=== PATIENT | female | born 1975 | race African-American/Black ===

== ENCOUNTER 2024-09-08 09:21 | Outpatient (REF) | payer OTHER, SELFPAY ==
--- NOTE | 2024-09-08 | EMG_ITS ---
Impression: Normal motor and sensory nerve conduction velocities in the lower extremities except for absent medial and lateral plantar responses bilaterally. Normal EMG of the right L2-S1 innervated muscles. Please see detail neurophysiological report. MTDD
--- OUTSIDE RECORDS SUMMARY | 2024-09-08 09:52 | XMS_ITS | Encounter Summary ---
Author Organization [facility] [place] [address] Care Team Providers Care Water Leak Repairer Name Role Phone Neto Boo MD Primary Care Provider [phone] Encounter Details Date Type Department Care Team ([facility] st Contact Info) Description 08/13/2024 Lab Requisition [facility] - Main Lab 299 [facility] [employer] [place] [phone] Mary Dangelo MD 299 [facility] [address] [place] [address] Acute vaginitis Social History Tobacco Use Types Packs/Day Years Used Date Smoking Tobacco: Never Smokeless Tobacco: Never Alcohol Use Standard Drinks/Week Comments No 0 (1 standard drink = 0.6 oz pur e alcohol) Housing Instability Answer Date Recorde d Are you worried that in the next 2 months you may not have stable housing? No 07/29/2024 Food Access & Nutrition Answer Date Rec orded Do you have access to a vari ety of food including fruits and vegetables? Yes 07/29/2024 Access to Healthcare Answer Date Record ed Within the last 3 months, mi anne many times did you visit the emergency department for your medical care? 0 07/29/2024 Health Literacy Answer Date Recorded How often do you need to hav e someone help you when you read instructions, pamphlets, or other written material from your doctor or pharmacy? Rarely 07/29/2024 Caregiver: How often do you need to have someone help you when you read instructions, pamphlets, or other written material from your doctor or pharmacy? Not on file 07/29/2024 Transportation Answer Date Recorded Has the lack of transportati on kept you from meetings, work, or from getting things needed for daily living? No Has the lack of transportati on kept you from medical appointments or from getting medications? No 07/29/2024 Social Isolation Answer Date Recorded How often do you feel lonely or isolated from those around you? Sometimes 07/29/2024 Food Risk Answer Date Recorded Within the past 12 months we worried whether our food would run out before we got money to buy more. Never true 07/29/2024 Within the past 12 months th e food we bought just didn't last and we didn't have money to get more. Never true 07/29/2024 Dependent Care Answer Date Recorded Do you need help finding or paying for care for your loved ones. For example, childcare attendant or elderly care for an older adult? No 07/29/2024 Education Answer Date Recorded Do you think completing more education or training, like finishing a GED, going to college, or learning a trade, would be helpful for you? N/A 07/29/2024 Employment and Income Answer Date Recor ded During the last four weeks, have you been actively looking for work? No 07/29/2024 Living Situation Answer Date Recorded What is your living situation? 0 07/29/2024 Comments No Sex and Gender Information Value Date Recorded Sex Assigned at Female 12/25/2023 9:20 AM EDT Legal Sex Female 8:49 PM EST Gender Identity Female 12/25/2023 9:20 AM EDT Sexual Orientation Not on file documented as of this encounter Plan of Treatment Upcoming Encounters Date Type Department Care Team (Late st Contact Info) Description 09/25/2024 9:30 AM EDT Consult Orthopedic Surgery - [place] 160 175 [facility] [address] [place] [phone] Robyn Muse MD 175 [facility] 160 [place] [address] 07/29/2025 8:30 AM EDT Office Visit Internal Medicine [facility] [address] [phone] Eamon Conner NP [address] [address] documented as of this encounter Procedures Procedure Name Priority Date/Time Associated Diagnosis Comments VAGINITIS PATHOGENS BY PCR Routine 08/13/2024 12:00 AM EDT Acute vaginitis documented in this encounter Results * (ABNORMAL) Vaginitis pathogens molecular study (08/13/2024 12:00 AM EDT) Trichomonas vaginalis Negative Negative 08/14/2024 1:36 PM EDT [facility] Gardnerella vaginalis Positive(A) Negative 08/14/2024 1:36 PM EDT [facility] Gabriela Species Positive(A) Negative 08/15/19 1:36 PM EDT [facility] Swab Vaginal structure / Unknown 08/13/2024 08/13/2024 6:47 PM EDT us Mary Dangelo MD LAB MICROBIOLOGY - GENER AL ORDERABLES Final Result [facility] [address] [place] [address], documented in this encounter Visit Diagnoses Diagnosis Acute vaginitis Unspecified vaginitis and vulvovaginitis documented in this encounter Additional Health Concerns Assessment Noted Time PHQ-9 Depression Total Score: 9 07/30/19 9:17 AM EDT documented as of this encounter Care Teams Water Leak Repairer Relationship Specialty Start Date End Date Neto Boo MD [address] [id number] PCP - General Internal Medicine 07/29/24 documented as of this encounter
--- OUTSIDE RECORDS SUMMARY | 2024-09-08 09:52 | XMS_ITS | Clinical Summary ---
Author Organization [facility] Address [address] [place] [address] Care Team Providers Care Medical Data Analyst Name Role Phone Radha Jimenez DMD Primary Care Provider [phone] Source Comments PLEASE NOTE, if this patient is a minor, it may be UNLAWFUL to discuss sensitive information that is contained in these records (such as FAMILY PLANNING, MENTAL HEALTH or SUBSTANCE ABUSE) with the minor patient's parent or other person without the patient's specific authorization.[facility] Social History Tobacco Use Types Packs/Day Years Used Date Smoking Tobacco: Never Assessed Social Connections Answer Date Recorded Social Connections and Isolation 0 02/03/2020 Financial Resource Strain Answer Date R ecorded Financial Resource Strain 0 2019 Stress Answer Date Recorded Stress 0 02/03/2020 Physical Activity Answer Date Recorded Physical Activity 0 02/03/2020 Food Insecurity Answer Date Recorded Food 0 02/03/2020 Transportation Needs Answer Date Record ed Transportation 0 02/03/2020 Housing Stability Answer Date Recorded Housing 0 02/03/2020 Safety and Environment Answer Date Preston rded Safety 0 02/03/2020 Utilities Answer Date Recorded Utilities 0 02/03/2020 Employment Answer Date Recorded Employment 0 02/03/2020 Comments Unknown Sex and Gender Information Value Date Recorded Sex Assigned at Not on file Legal Sex Female 11:44 AM PST Gender Identity Not on file Sexual Orientation Not on file Plan of Treatment Not on file Insurance [place] [facility] ON LICENSE OF [facility] Care Teams Medical Data Analyst Relationship Specialty Start Date End Date Radha Jimenez DMD [address] [place] [id number] PCP - General Dental Awning Erector 10/02/19
== END 2024-09-08 09:22 | disposition home or self-care (01) ==
LOC: HO.NEURO 09:21
PROVIDERS: Visit Provider Psychiatry & Neurology Neurology
DX: R20.0 Anesthesia of skin (principal)
CPT/HCPCS: 95886; 95913

== ENCOUNTER → 2024-09-08 10:30 | Outpatient (BNV) | payer OTHER, SELFPAY | PROVIDERS: Visit Provider Psychiatry & Neurology Neurology | DX: M79.604 Pain in right leg (principal); R20.2 Paresthesia of skin | CPT/HCPCS: 95886; 95913 ==

== ENCOUNTER 2024-09-22 15:09 | Outpatient (AMB) | payer OTHER, SELFPAY ==
--- NOTE | 2024-09-22 15:18 | MHC.OFFVIS ---
Intake Visit Reasons: 6 month f/u Allergies codeine Allergy (Unknown, Verified 09/22/24 15:19) Unknown escitalopram (From Lexapro) Allergy (Unknown, Verified 09/22/24 15:19) Unknown Medication List - Last Reconciled 09/22/24 by Leidy Jaime CNP cholecalciferol (vitamin D3) (Vitamin D3) 50 mcg PO DAILY dextroamphetamine-amphetamine 5 mg 1 tab PO DAILY meclizine 12.5 mg PO BID mirtazapine (Remeron) 15 mg PO BEDTIME oxcarbazepine 300 mg PO QPM sertraline 200 mg PO QAM HPI Comments Details: Vertigo on and off, triggered by stress. Last episode was about 2 weeks ago. She has to lay down and sleep and feels better when she wakes up. Meclizine helps, but makes her tired. Thumping in ears happens when about to have attack. Hearing was about the same. Not taking HCTZ. 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 Gets periodic flareups of vertigo and vomiting. Has to stay out of work for a day or leave work early when it happens. Mild tremors in hands continue, worse with stress. No functional impairment. No difficulty eating, drinking, or swallowing. Occasionally has trouble checking temperature or will need to wait to draw blood at work. Unknown family history as she is adopted. She was working with therapist. passed suddenly from cardiac arrest in 10/2021, had to move, and had COVID in 09/2021. Gets episodes of vertigo and tinnitus, helped by meclizine. She started having episodic spinning vertigo in 2018. If she moves her head during that time, the spinning gets worse. Episodes last about a week the subside. She may have another one a few days later. When she does not have the vertigo, she can put her head in any position without brining it on. In 2019, she also noted swishing noise in both of her ears, which also lasts as long as she has vertigo and then goes away. Not aware of any hearing loss. Sometimes the noise in her ear can wake her up at night. Uses meclizine when needed for vertigo, but makes her drowsy. No significant head trauma. Gets occasional headaches and sinus congestion. [facility] Medical History (Updated 09/22/24 @ 15:22 by Leidy Jaime CNP) Bipolar disorder Meniere disease Review of Systems Const Denies chills, Denies daytime sleepiness, Reports difficulty sleeping, Denies fatigue, Denies fever(s), Denies frequent falls, Reports headache(s), Denies increased appetite, Denies poor appetite, Denies snoring, Denies weakness, Denies weight gain and Denies weight loss Eyes Denies loss of vision ENT Denies vertigo, Reports dizziness, Reports headache(s) and Denies neck pain Card Denies chest pain at rest, Denies chest pain with activity, Denies syncope, Denies leg edema, Denies palpitations, Denies dyspnea and Denies dyspnea on exertion Resp Denies cough, Denies dyspnea, Denies dyspnea on exertion and Denies snoring GI Denies abdominal pain, Denies constipation, Denies heartburn, Denies diarrhea and Denies nausea Denies urinary frequency, Denies urinary incontinence and Denies urinary urgency Musc Denies abnormal gait, Denies back pain, Denies myalgias, Denies arthralgias, Denies neck pain, Denies numbness and Denies tingling Neuro Denies abnormal gait, Denies vertigo, Reports dizziness, Denies syncope, Denies frequent falls, Reports headache(s), Denies lack of coordination, Denies loss of vision, Denies memory loss, Denies numbness, Denies Other visual disturbances, Denies restless legs, Denies seizure-like activity, Denies tingling, Denies paresthesias, Denies tremor(s) and Denies weakness Psych Reports anxiety, Denies depression, Denies auditory hallucinations, Denies memory loss, Denies visual hallucinations and Reports other (stress) Endo Denies fatigue and Denies palpitations Physical Exam Const Other: General Appearance:? normal, in no acute distress. Heart:? S1, S2 normal, no murmurs. Lungs:? clear anteriorly and posteriorly. Musculoskeletal:? normal. Extremities:? no edema. Psych:? alert, oriented, cognitive function intact, cooperative with exam. Neuro Other: Abnormal Neurological Findings:?Mild tremor of hands on sustained posture. ? Mental Status: alert and oriented X 3. Normal attention, orientation, memory, and affect. Cranial Nerves: Pupils are equal, round, and reactive to light. External ocular muscles are intact. Visual nascimento are full, no ptosis. Face is symmetrical, no facial weakness or droop. Facial sensations are normal. Tongue protrudes in midline. Palate elevates symmetrically. Shoulder shrugging is normal Motor Examination: Normal muscle tone, bulk and strength. No atrophy or fasciculations. No drift of the extended upper extremities. DTR 2+. Plantars are flexor. Straight Leg Raisin degrees. Sensory Exam: Normal light touch, temperature, pinprick, vibration, and joint-position sensations. Rhomberg sign is absent. Coordination: No ataxia. No titubation. Ayqfsj-mq-niaa, fxkf-vspw-aplm test, and rapid alternating movements were normal. Gait Exam: Within normal limits. Cerebellar Signs: Asdpnh-ul-bmco and plvs-io-edmr is normal. No dysdiadochokinesia. Extrapyramidal System: Tremor as above. No rigidity with normal facial expressions. No bradykinesia. No bradyphrenia. Normal arm swing and posture. No propulsion or retropulsion. Speech: Normal. No dysphasia or dysarthria. Assessment & Plan Assessment & Plan (1) Meniere disease: Code(s): H81.09 - Meniere's disease, unspecified ear Category: Medical Qualifiers: Laterality: unspecified laterality Qualified Code(s): H81.09 - Meniere's disease, unspecified ear Plan: She was not taking HCTZ 12.5mg, can consider restarting medication in the future if symptoms worsen. Continue meclizine 12.5mg 1 tablet twice a day. (2) Tremor: Code(s): R25.1 - Tremor, unspecified Category: Medical Plan: Tremor was mild, no significant functional impairment. Option to try medication discussed, declining at this time. Plan Meds: Unable to tolerate >12.5mg meclizine Coding Level of Care Code Est Pt Level 3 (53649) Diagnoses Meniere's disease, unspecified laterality H81.09 Laterality: unspecified laterality Tremor R25.1
--- OUTSIDE RECORDS SUMMARY | 2024-09-22 16:01 | XMS_ITS ---
Author Name [facility] Organization Unknown Care Team Organization Name Specialty Phone Email Start Date End Da akira [facility] PRECIOUS Primary Care 08/30/2022 10/14/2023 [facility] Primary [facility] 01/02/2022
--- OUTSIDE RECORDS SUMMARY | 2024-09-22 16:01 | XMS_ITS | Encounter Summary ---
Author Organization [facility] [place] [address] Care Team Providers Care Commercial Art Instructor Name Role Phone Neto Boo MD Primary Care Provider Encounter Details Date Type Department Care Team ([facility] st Contact Info) Description 08/13/2024 Lab Requisition [facility] - Main Lab 299 [facility] [place] [phone] Mary Dagnelo MD 299 [facility] [address] [place] [address] Acute vaginitis Social History Tobacco [...] care for your loved ones. For example, exceptional children teacher assistant or elderly care for an older adult? [...] 9:30 AM EDT Consult Orthopedic Surgery - [place] 160 175 [facility] 160 [place] [phone] Robyn Muse MD 175 [facility] 160 [place] [address] 07/29/2025 8:30 AM EDT Office Visit Internal Medicine [facility] [address] [phone] Eamon Conner NP [address] [address] documented as of this encounter Procedures Procedure Name Priority Date/Time Associated Diagnosis Comments VAGINITIS PATHOGENS BY PCR Routine 08/13/2024 12:00 AM EDT Acute vaginitis documented in this encounter Results * (ABNORMAL) Vaginitis pathogens molecular study (08/13/2024 12:00 AM EDT) Trichomonas vaginalis Negative Negative 08/14/2024 1:36 PM EDT [facility] Gardnerella vaginalis Positive(A) Negative 08/14/2024 1:36 PM EDT [facility] Gabriela Species Positive(A) Negative 08/15/19 1:36 PM EDT [facility] Swab Vaginal structure / Unknown 08/13/2024 08/13/2024 6:47 PM EDT us Mary Dangelo MD LAB MICROBIOLOGY - GENER AL ORDERABLES Final Result [facility] 299 [place] [address], documented in this encounter Visit Diagnoses Diagnosis Acute vaginitis Unspecified vaginitis and vulvovaginitis documented in this encounter Additional Health Concerns Assessment Noted Time PHQ-9 Depression Total Score: 9 07/30/19 9:17 AM EDT documented as of this encounter Care Teams Commercial Art Instructor Relationship Specialty Start Date End Date Neto Boo MD [address] [address] PCP - General Internal Medicine 07/29/24 documented as of this encounter
--- OUTSIDE RECORDS SUMMARY | 2024-09-22 16:01 | XMS_ITS | Clinical Summary ---
Author Organization [facility] Address [address] [place] [address] Care Team Providers Care Fuse Spooler Name Role Phone Radha Jimenez DMD Primary Care Provider Source Comments PLEASE NOTE, if this patient [...] Plan of Treatment Not on file Insurance [place] D[place] [facility] [facility] Care Teams Fuse Spooler Relationship Specialty Start Date End Date Radha Jimenez DMD [address] [place] [id number] PCP - General Dental Dairy Manager 10/02/19
== END 2024-09-22 15:37 | disposition home or self-care (01) ==
LOC: HO.HSM 15:11
PROVIDERS: PCP Internal Medicine; Referring Provider Internal Medicine; Visit Provider Registered Nurse
DX: H81.09 Meniere's disease, unspecified ear (principal); R25.1 Tremor, unspecified
CPT/HCPCS: 99213

== ENCOUNTER → 2024-09-22 15:09 | Outpatient (BNVA) | payer OTHER, SELFPAY | PROVIDERS: PCP Internal Medicine; Referring Provider Internal Medicine; Visit Provider Registered Nurse | DX: H81.09 Meniere's disease, unspecified ear (principal); R25.1 Tremor, unspecified; Z79.899 Other long term (current) drug therapy | CPT/HCPCS: 99212 ==